=== PATIENT | female | born 1945 ===

== ENCOUNTER 2017-10-28 14:08 | Emergency (ER) | payer MEDICARE ==
[2017-10-28] MEDS ORDERED: Sodium Chloride 0.9% 1,000 ML IV STA (16:38)
--- NOTE | 2017-10-28 16:56 | ED PDOC ---
HPI: Abdomen Time Seen by Provider: 10/28/17 16:32 Chief Complaint (Nursing): Abdominal Pain Chief Complaint (Provider): abdominal pain History Per: Patient History/Exam Limitations: no limitations Onset/Duration Of Symptoms: Days (x5) Current Symptoms Are (Timing): Still Present Location Of Pain/Discomfort: Epigastric, Other (lower radiates to epigastrium) Quality Of Discomfort: "Pain" Associated Symptoms: Vomiting (x1), Diarrhea. denies: Fever, Chills, Urinary Symptoms Additional Complaint(s): Sherry Dickson is a 72 year old female, with a past medical history of HTN, depression and hysterectomy, who presents to the emergency department complaining of lower abdominal pain radiating to epigastrium onset for x5 days associated with several episodes of diarrhea and 1 episode of non-bloody vomiting. No prior history of similar pain. She denies any fever, chills, or urinary symptoms. No further medical complaints. PMD: Marvin Duval Past Medical History Reviewed: Historical Data, Nursing Documentation, Vital Signs Vital Signs: Last Vital Signs Temp 99.1 F 10/28/17 14:34 Pulse 66 10/28/17 14:34 Resp 16 10/28/17 14:34 BP 133/72 10/28/17 14:34 Pulse Ox 96 10/28/17 17:37 - Medical History PMH: Depression, HTN - Surgical History Other surgeries: hysterectomy - Family History Family History: States: No Known Family Hx - Social History Current smoker - smoking cessation education provided: No Alcohol: None Drugs: Denies - Allergies Allergies/Adverse Reactions: Allergies Allergy/AdvReac Type Severity Reaction Status Date / Time No Known Allergies Allergy Verified 10/28/17 16:36 Review of Systems ROS Statement: Except As Marked, All Systems Reviewed And Found Negative Gastrointestinal: Positive for: Nausea, Vomiting (x1 non bloody), Abdominal Pain , Diarrhea (several episodes) Physical Exam - Reviewed Nursing Documentation Reviewed: Yes Vital Signs Reviewed: Yes - Physical Exam Appears: Positive for: Non-toxic Head Exam: Positive for: ATRAUMATIC, NORMOCEPHALIC Skin: Positive for: Normal Color, Warm, Dry Eye Exam: Positive for: Normal appearance, EOMI, PERRL Neck: Positive for: Painless ROM, Supple Cardiovascular/Chest: Positive for: Regular Rate, Rhythm. Negative for: Murmur Respiratory: Positive for: Normal Breath Sounds. Negative for: Respiratory Distress Gastrointestinal/Abdominal: Positive for: Tenderness (diffused abdominal tenderness. Right > left), Guarding Back: Negative for: L CVA Tenderness, R CVA Tenderness, Vertebral Tenderness Extremity: Positive for: Normal ROM (upper and lower extremities). Negative for : Deformity, Swelling Neurologic/Psych: Positive for: Alert, Oriented. Negative for: Motor/Sensory Deficits - Laboratory Results Result Diagrams: 10/28/17 17:20 10/28/17 17:20 - ECG O2 Sat by Pulse Oximetry: 96 (RA) Pulse Ox Interpretation: Normal Medical Decision Making Medical Decision Making: Time: 16:32 Initial Impression: Initial work up for acute abdomen w/ blood work. Initial Plan: --Abd & Pelvis IV Contrast [CT] --EKG --CMP --Lipase --Troponin I --CBC w/ differential --PTT --PT --Chest portable [RAD] --Toradol 15 mg IVP --Sodium Chloride 1,000 ml IV 1,000 mls/hr --Urinalysis --Reevaluation 17:07 CXR FINDINGS: LUNGS: No active pulmonary disease. PLEURA: No significant pleural effusion identified, no pneumothorax apparent. CARDIOVASCULAR: No radiographic findings to suggest acute or significant cardiovascular disease. OSSEOUS STRUCTURES: No significant abnormalities. VISUALIZED UPPER ABDOMEN: Normal. OTHER FINDINGS: None. IMPRESSION: No active disease. ----- Scribe Attestation: Documented by Giovany Trotter, acting as a scribe for Balwinder Ballard MD. Provider Scribe Attestation: All medical record entries made by the Scribe were at my direction and personally dictated by me. I have reviewed the chart and agree that the record accurately reflects my personal performance of the history, physical exam, medical decision making, and the department course for this patient. I have also personally directed, reviewed, and agree with the discharge instructions and disposition. Disposition - Clinical Impression Clinical Impression: Abdominal pain - Patient ED Disposition Is Patient to be Admitted: Transfer of Care - Disposition Forms: [employer] (Libyan) Patient Signed Over To: Ortega Abad Y Handoff Comments: pending CT report and dispo
--- NOTE | 2017-10-28 17:28 | RAD ---
HISTORY: ABD PAIN COMPARISON: No prior. FINDINGS: LUNGS: No active pulmonary disease. PLEURA: No significant pleural effusion identified, no pneumothorax apparent. CARDIOVASCULAR: No radiographic findings to suggest acute or significant cardiovascular disease. OSSEOUS STRUCTURES: No significant abnormalities. VISUALIZED UPPER ABDOMEN: Normal. OTHER FINDINGS: None. IMPRESSION: No active disease.
[2017-10-28 17:33] LABS: BASO % 0.3 % (0.0-2.0); EOS % 0.2 % (0.0-4.0); HEMOGLOBIN 13.7 g/dL (12.0-16.0); LYMPH # 1.3 K/uL (1.0-4.3); LYMPH % 9.6 % (20.0-40.0); MEAN CELL VOLUME 92.8 fl (81.0-99.0); MEAN CORPUSCULAR HEMOGLOBIN 30.9 pg (27.0-31.0); MEAN CORPUSCULAR HGB CONC 33.3 g/dL (33.0-37.0); MEAN PLATELET VOLUME 9.2 fl (7.2-11.7); MONO # 0.7 K/uL (0.0-0.8); MONO % 5.4 % (0.0-10.0); NEUT # 11.5 K/uL (1.8-7.0); NEUT % 84.5 % (50.0-75.0); NRBC % 0.1 % (0.0-0.0); PLATELET COUNT 203 K/uL (130-400); RBC 4.42 Mil/uL (3.80-5.20); RED CELL DISTRIBUTION WIDTH 13.5 % (11.5-14.5); WHITE BLOOD COUNT 13.6 K/uL (4.8-10.8)
[2017-10-28 17:46] LABS: ALB/GLOB RATIO 1.2 (1.0-2.1); ALBUMIN 4.1 g/dL (3.5-5.0); ALT/SGPT 25 U/L (9-52); AST/SGOT 23 U/L (14-36); BLOOD UREA NITROGEN 21 mg/dl (7-17); CALCIUM 9.5 mg/dL (8.4-10.2); GFR AFRICAN-AMERICAN > 60; GFR NON-AFRICAN AMERICAN > 60; LIPASE 60 U/L (23-300)
[2017-10-28 17:51] LABS: INR 1.2 (0.9-1.2); PARTIAL THROMBOPLASTIN TIME 27.4 Seconds (25.6-37.1); PROTHROMBIN TIME 13.1 Seconds (9.8-13.1)
[2017-10-28] MEDS ORDERED: Iohexol 300 100 ML IJ ONE (17:56)
[2017-10-28] MEDS ORDERED: Sodium Chloride 0.9% 50 ML IV ONE (17:56)
[2017-10-28 18:04] LABS: SQUAMOUS EPITHIAL < 1 /hpf (0-5); URINE BACTERIA RARE (<OCC); URINE BILIRUBIN NEGATIVE (NEGATIVE); URINE BLOOD NEGATIVE (NEGATIVE); URINE CLARITY CLOUDY (Clear); URINE COLOR AMBER (YELLOW); URINE GLUCOSE (UA) NEG (Normal); URINE LEUKOCYTE ESTERASE MOD Leu/uL (Negative); URINE PROTEIN 30 mg/dL (NEGATIVE)
[2017-10-28 18:37] LABS: LYMPHOCYTE 3 % (20-50); MONOCYTE 5 % (0-10); NEUTROPHIL 88 % (42-75); PLATELET ESTIMATE NORMAL (NORMAL); REACTIVE LYMPHOCYTES 4 % (0-0); TOTAL CELLS COUNTED 100
--- NOTE | 2017-10-28 19:45 | ED PDOC ---
- Laboratory Results Result Diagrams: 10/28/17 17:20 10/28/17 17:20 - ECG O2 Sat by Pulse Oximetry: 96 (RA) Medical Decision Making Medical Decision Makin:00 -Patient endorsed to me by Dr. Ballard, pending CT. 19:[address] FINDINGS: LUNG BASES: Dependent atelectasis/scarring lung bases. Few subcentimeter nodules left lung base. Follow up. MEDIASTINUM: Small hiatal hernia. ABDOMEN: LIVER: Unremarkable. GALLBLADDER AND BILE DUCTS: Unremarkable. No calcified stones. No ductal dilation. PANCREAS: Unremarkable. No mass. No ductal dilation. SPLEEN: Unremarkable. No splenomegaly. ADRENALS: Unremarkable. No mass. KIDNEYS AND URETERS: Unremarkable. No solid mass. No hydronephrosis. STOMACH AND BOWEL: Gastric mucosa is thickened. Moderate stool through the the colon. There is mucosa thickening with inflammatory changes along the sigmoid colon suggestive of a colitis. Follow up. No obstruction. PELVIS: APPENDIX: No findings to suggest acute appendicitis. BLADDER: Unremarkable. REPRODUCTIVE: Unremarkable as visualized. ABDOMEN and PELVIS: INTRAPERITONEAL SPACE: No free air. No significant fluid collection. BONES/JOINTS: No acute fracture. SOFT TISSUES: Unremarkable. VASCULATURE: Unremarkable. No abdominal aortic aneurysm. LYMPH NODES: Unremarkable. No enlarged lymph nodes. IMPRESSION: 1. Dependent atelectasis/scarring lung bases. Few subcentimeter nodules left lung base. Follow up. 2. Small hiatal hernia. 3. Gastric mucosa is thickened. Moderate stool through the the colon. There is mucosa thickening with inflammatory changes along the sigmoid colon suggestive of a colitis. Follow up. 21:[address] results with patient. she will follow up with her doctor. Upon provider reevaluation patient is feeling better, is medically stable, and requires no further treatment in the ED at this time. Patient will be discharged home. Counseling was provided and all questions were answered regarding diagnosis and need for follow up with PMD. There is agreement to discharge plan. Return if symptoms persist or worsen. Disposition - Clinical Impression Clinical Impression: Abdominal pain, Colitis - POA Present On Arrival: None - Disposition Disposition: Routine/Home Disposition Time: 21:40 Condition: STABLE Additional Instructions: follow up with your primary doctor 1-2 days. return to the ED with any worsening or concerning symptoms Prescriptions: Ciprofloxacin HCl [Cipro] 500 mg PO BID #20 tab Metronidazole [Flagyl] 500 mg PO TID #30 tablet Instructions: Acute Abdomen (Belly Pain), Adult (DC) Forms: [employer] (Macanese) Print Language: [place]
[2017-10-28 22:05] VITALS: BP 130/70; PULSE 62; RESP 18; TEMP 97.9
[2017-10-28 22:14] VITALS: O2SAT 96
--- NOTE | 2017-10-29 08:44 | CARD ---
APPROVED REPORT EKG Measurement Heart [id number] <Conclusion> Normal sinus rhythm Nonspecific T wave abnormality Abnormal ECG
--- NOTE | 2017-10-29 11:00 | CT ---
PROCEDURE: CT Abdomen and Pelvis with contrast HISTORY: difusse abd pain, distension COMPARISON: None. TECHNIQUE: Contrast dose: 95 mL Omnipaque 300 Radiation dose: Total exam DLP = 194.52 mGy-cm. This CT exam was performed using one or more of the following dose reduction techniques: Automated exposure control, adjustment of the mA and/or kV according to patient size, and/or use of iterative reconstruction technique. FINDINGS: LOWER THORAX: Minimal dependent atelectasis/linear scarring in both lower lobes. Two nodules, 4 mm each, in left lower lobe. No followup required. LIVER: Unremarkable. No gross lesion or ductal dilatation. GALLBLADDER AND BILE DUCTS: Unremarkable. PANCREAS: Unremarkable. No gross lesion or ductal dilatation. SPLEEN: Unremarkable. ADRENALS: Unremarkable. No mass. KIDNEYS AND URETERS: Unremarkable. No hydronephrosis. No solid mass. VASCULATURE: Unremarkable. No aortic aneurysm. BOWEL: Circumferential mural thickening of gastric antrum common nonspecific. Possible gastritis. Rule out neoplasm. Mural thickening of distal descending and rectosigmoid colon consistent with nonspecific colitis. No bowel obstruction. No other abnormal bowel loops are identified. APPENDIX: Normal appendix. PERITONEUM: Trace ascites. No pneumoperitoneum. LYMPH NODES: Unremarkable. No enlarged lymph nodes. BLADDER: Unremarkable. REPRODUCTIVE: Status post hysterectomy BONES: No acute fracture. OTHER FINDINGS: None. IMPRESSION: Nonspecific colitis involving distal descending and rectosigmoid colon. Mural thickening of gastric antrum common nonspecific. Consider follow-up with upper endoscopy. No other significant abnormality. Preliminary interpretation of this examination was reported by [employer] at 7:51 p.m. on 10/28/2017. There is concurrence of this report with the preliminary interpretation.
== END 2017-10-28 22:06 | disposition home or self-care (01) ==
LOC: H.ER 14:08
DX: K52.9 Noninfective gastroenteritis and colitis, unspecified (principal); F32.9 Major depressive disorder, single episode, unspecified; I10 Essential (primary) hypertension; K44.9 Diaphragmatic hernia without obstruction or gangrene; Z90.710 Acquired absence of both cervix and uterus
CPT/HCPCS: 71045; 74177; 80053; 81003; 83690; 84484; 85025; 85610; 85730; 93005; 96374; 99284; J1885; J7030; Q9967